=== PATIENT | female | born 1985 | race African-American/Black ===

== ENCOUNTER 2016-09-25 16:19 | Emergency (ER) | payer SELFPAY ==
[2016-09-25 16:41] VITALS: BP 125/84
[2016-09-25] MEDS ORDERED: LIDOCAINE 1% INJ-PF (10 MG/ML) 30 ML SDV INJ ONE (17:52)
[2016-09-25] MEDS ORDERED: DIPH/PERTUSS(ACELL)/TETANUS VAC/PF 0.5 ML SYR (>=10YO) IM ONE (17:59)
--- NOTE | 2016-09-25 18:07 | ER Document Report ---
HPI - HPI Pain Level: 5 Notes: Patient is a 31-year-old female presents the ED complaining of a laceration/ puncture wound to her left hand just prior to arrival. Patient states that she was trying to separate frozen pieces of burger meat with a knife when he slipped off and punctured her left palm. Patient states that it when he may be a 1/2 centimeter. Patient states that the pain is a throbbing pain right now. Patient states she still able to manager internet and she has feeling in her fingers. Patient states that she is able to stop the bleeding with compression. Patient is not sure when she had a tetanus previously. Denies any drug allergies, medications, significant past medical history. She denies any smoking or illicit drug use. Patient states the knife was otherwise clean. Denies any headache, fever, chest pain, palpitation constantly, cough, wheeze, shortness breath, abdominal pain, nausea/vomiting/diarrhea, muscle weakness/paralysis, numbness/tingling. - ROS Notes: REVIEW OF SYSTEMS: CONSTITUTIONAL : Denies fever, chills, or sweats. Denies recent illness. EENT: Denies eye, ear, throat, or mouth pain or symptoms. Denies nasal or sinus congestion or discharge. Denies throat, tongue, or mouth swelling or difficulty swallowing. CARDIOVASCULAR: Denies chest pain. Denies palpitations or racing or irregular heart beat. Denies ankle edema. RESPIRATORY: Denies cough, cold, or chest congestion. Denies shortness of breath, difficulty breathing, or wheezing. GASTROINTESTINAL: Denies abdominal pain or distention. Denies nausea, vomiting , or diarrhea. Denies blood in vomitus, stools, or per rectum. Denies black, tarry stools. Denies constipation. GENITOURINARY: Denies difficulty urinating, painful urination, burning, frequency, blood in urine, or discharge. MUSCULOSKELETAL: see hpi SKIN: see hpi NEUROLOGICAL: Denies confusion or altered mental status. Denies passing out or loss of consciousness. Denies dizziness or lightheadedness. Denies headache. Denies weakness or paralysis or loss of use of either side. Denies problems with gait or speech. Denies sensory loss, numbness, or tingling. ALL OTHER SYSTEMS REVIEWED AND NEGATIVE. Dictation was performed using [employer] voice recognition software Past Medical History - Social History Smoking Status: Never Smoker Chew tobacco use (# tins/day): No Frequency of alcohol use: None Drug Abuse: None Family History: Reviewed & Not Pertinent Patient has suicidal ideation: No Patient has homicidal ideation: No Renal/ Medical History: Denies: Hx Peritoneal Dialysis Past Surgical History: Reports: Hx Section - x4 - Immunizations Hx Diphtheria, Pertussis, Tetanus Vaccination: No Vertical Provider Document - CONSTITUTIONAL Agree With Documented VS: Yes Notes: PHYSICAL EXAMINATION: GENERAL: Well-appearing, well-nourished and in no acute distress. LUNGS: Breath sounds clear to auscultation bilaterally and equal. No wheezes rales or rhonchi. HEART: Regular rate and rhythm without murmurs, rubs, gallops. Musculoskeletal: lt hand: + 1.5cm linear laceration. FROM to passive/active of the fingers/hand/wrist. Strength 5+/5. Sensation intact distal. No deficits noted. No tendon/nervous/ligament compromise based on exam. + tenderness to palp near laceration. Extremities: No cyanosis, clubbing, or edema b/l. Peripheral pulses 2+. Capillary refill less than 2 seconds. NEUROLOGICAL:Normal sensory, motor exams PSYCH: Normal mood, normal affect. SKIN: Warm, Dry, normal turgor, no rashes or lesions noted. - INFECTION CONTROL TRAVEL OUTSIDE OF THE [place] IN LAST 30 DAYS: No - RESPIRATORY O2 Sat by Pulse Oximetry: 98 Course - Re-evaluation Re-evalutation: 09/25/16 19:14 Patient is an afebrile, well-hydrated, 31-year-old female presents the ED with a laceration to her left anterior hand status post puncture wound with a knife. Vitals are stable. PE otherwise unremarkable. Tdap was given today. There is no focal neurologicalm, vascular, musculoskeletalor deficit. Wound was thoroughly cleansed and irrigated. 5 simple interrupted sutures were utilized to approximate the wound edges successfully without any complications. Sterile wound dressing applied. Wound instructions reviewed. I will give her Keflex 3 times daily 5 days as prophylactic. Wound recheck in 2-3 days with PCM/ED. Call orthopedics to set up an appointment for further evaluation. Return to the ED with any worsening/concerning symptoms otherwise as reviewed in discharge. Patient is in agreement. - Vital Signs Vital signs: Temp Pulse Resp BP Pulse Ox 98.9 F 70 20 125/84 98 09/25/16 16:39 09/25/16 16:39 09/25/16 16:39 09/25/16 16:39 09/25/16 16:39 Procedures - Laceration/Wound Repair Left Anterior Hand Time completed: 18:45 Wound length (cm): 1.5 Wound's Depth, Shape: Superficial, Linear Laceration pre-procedure: Sterile PPE donned, Sterile drapes applied, Shur- Clens applied Anesthetic type: 1% Lidocaine Volume Anesthetic (mLs): 7 Wound explored: Clean Irrigated w/ Saline (mLs): 60 Wound Debrided: Minimal Wound Repaired With: Sutures Suture Size/Type: 5:0, Nylon Number of Sutures: 5 Layer Closure?: No Post-procedure wound care: Sterile dressing applied Post-procedure NV exam normal: Yes Complications: No Discharge - Discharge Clinical Impression: Hand laceration Qualifiers: Encounter type: initial encounter Foreign body presence: without foreign body Laterality: left Qualified Code(s): S61.412A - Laceration without foreign body of left hand, initial encounter Condition: Stable Disposition: HOME, SELF-CARE Instructions: Laceration Care ([facility]), Prophylactic Antibiotic ([facility]), Antibiotic Ointment Protection ([facility]), Soap Cleansing ([facility]), Tetanus Immunization Given ([facility] ) Additional Instructions: Do not shower or bathe for 24 hours. After 24 hours you may shower but no submersion of the wound under water. Keep the original dressing on the wound for 24 hours unless the drainage soaks through. Change the dressing daily thereafter and keep the knots of the suture material clean from any dried discharge. You may leave the wound open to the air once there is no more discharge. Return to the ED and/or your PCM in 2-3 days for a recheck. Monitor for any signs of worsening pain or redness, purulent drainage, streaks, and/or fever. Return to the ED if noticing any of the above symptoms or as needed. Take medications as directed. Your sutures will need to be removed in 12-14 days. Call Orthopedics (hand specialist) for recheck and further evaluation as well. Prescriptions: Cephalexin Monohydrate [Keflex 500 mg Capsule] 500 mg PO TID #15 capsule Referrals: AUSTEN KERNS DO [ACTIVE STAFF] - Follow up in 3-5 days
== END 2016-09-25 19:30 | disposition home or self-care (01) ==
LOC: ER 16:19
PROC: 0HQGXZZ Repair Left Hand Skin, External Approach (ICD-10-PCS; principal; 2016-09-25)
DX: S61.412A Laceration without foreign body of left hand, initial encounter (principal); W26.0XXA Contact with knife, initial encounter; Y93.G3 Activity, cooking and baking; Z23 Encounter for immunization
CPT/HCPCS: 99283; 90471; 90715; 12001; J3490

== ENCOUNTER 2017-01-23 00:20 | Emergency (ER) | payer SELFPAY ==
[2017-01-23 00:30] VITALS: BP 133/79
[2017-01-23] MEDS ORDERED: CLINDAMYCIN HCL 150 MG CAPSULE PO ONE (01:12)
--- NOTE | 2017-01-23 01:15 | ER Document Report ---
ED General - General Chief Complaint: Mouth Problem Stated Complaint: MOUTH PAIN,HEADACHE Time Seen by Provider: 01/23/17 00:48 Notes: Patient is a 31-year-old female without past history who presents with diffuse dental discomfort. Patient does describe it as a diffuse, throbbing, moderate pain that is worsened by chewing or swallowing. She states that this is been a problem for the past 2-3 weeks and she does have an appointment with the dentist in the next 24 hours. She does deny any difficulty breathing. No fever. She notes that she feels her space might be somewhat swollen but has not noted any significant facial swelling. She has also noted lymph node swelling. The patient had multiple complaints in triage only complaint she does address with me her dental discomfort. TRAVEL OUTSIDE OF THE [place] IN LAST 30 DAYS: No - Related Data Allergies/Adverse Reactions: No Known Allergies Allergy (Unverified 09/25/16 16:38) Past Medical History - General Information source: Patient - Social History Smoking Status: Never Smoker Frequency of alcohol use: None Drug Abuse: None Lives with: Spouse/Significant other Family History: Reviewed & Not Pertinent Patient has suicidal ideation: No Patient has homicidal ideation: No Renal/ Medical History: Denies: Hx Peritoneal Dialysis Past Surgical History: Reports: Hx Section - x4 - Immunizations Hx Diphtheria, Pertussis, Tetanus Vaccination: No Review of Systems - Review of Systems Notes: Constitutional: Negative for fever. HENT: Positive for diffuse dental pain. Eyes: Negative for visual changes. Cardiovascular: Negative for chest pain. Respiratory: Negative for shortness of breath. Gastrointestinal: Negative for abdominal pain, vomiting or diarrhea. Genitourinary: Negative for dysuria. Musculoskeletal: Negative for back pain. Skin: Negative for rash. Neurological: Negative for headaches, weakness or numbness. 10 point ROS negative except as marked above and in HPI. Physical Exam - Vital signs Vitals: Temp Pulse Resp BP Pulse Ox 98.2 F 84 18 133/79 H 98 01/23/17 00:20 01/23/17 00:20 01/23/17 00:20 01/23/17 00:20 01/23/17 00:20 Interpretation: Normal Notes: PHYSICAL EXAMINATION: GENERAL: Well-appearing, well-nourished and in no acute distress. HEAD: Atraumatic, normocephalic. EYES: Pupils equal round and reactive to light, extraocular movements intact, sclera anicteric, conjunctiva are normal. ENT: Multiple dental caries and several areas of chipped teeth. There are multiple small periapical abscesses scattered throughout the gingiva. Nares patent, oropharynx clear without exudates. Moist mucous membranes. NECK: Normal range of motion, bilateral submandibular lymphadenopathy. LUNGS: Breath sounds clear to auscultation bilaterally and equal. No wheezes rales or rhonchi. HEART: Regular rate and rhythm without murmurs ABDOMEN: Soft, nontender, normoactive bowel sounds. No guarding, no rebound. No masses appreciated. EXTREMITIES: Normal range of motion, no pitting or edema. No cyanosis. NEUROLOGICAL: No focal neurological deficits. Moves all extremities spontaneously and on command. PSYCH: Normal mood, normal affect. SKIN: Warm, Dry, normal turgor, no rashes or lesions noted. Course - Re-evaluation Re-evalutation: 01/23/17 01:13 Patient has diffuse dental caries and several small apical abscesses that expressed easily with direct palpation. She has a scheduled appointment with a dentist within the next 24 hours. Will start on clindamycin 3 times daily. Her airway is otherwise patent, no evidence of a peritonsillar abscess, Sivakumar' s angina, or significant facial swelling. Vitals otherwise within normal limits. At this time will discharge with return precautions and follow-up recommendations. Verbal discharge instructions given a the bedside and opportunity for questions given. Medication warnings reviewed. Patient is in agreement with this plan and has verbalized understanding of return precautions and the need for him to follow-up as scheduled - Vital Signs Vital signs: Temp Pulse Resp BP Pulse Ox 98.2 F 84 18 133/79 H 98 01/23/17 00:20 01/23/17 00:20 01/23/17 00:20 01/23/17 00:20 01/23/17 00:20 Discharge - Discharge Clinical Impression: Pain, dental, Dental abscess Condition: Good Disposition: HOME, SELF-CARE Additional Instructions: You have been seen for dental pain. It is very important that you follow-up with a dentist for definitive care. Please return if you develop fever greater than 101, swelling in your face, vomiting, difficulty breathing or swallowing, or any other symptoms that are concerning to you. For pain you should take ibuprofen 600 mg every 6 hours as needed. Prescriptions: Clindamycin HCl 300 mg PO TID #30 capsule Referrals: DON STALEY MD [Primary Care Provider] - Follow up as needed
== END 2017-01-23 01:25 | disposition home or self-care (01) ==
LOC: ER 00:20
DX: K04.7 Periapical abscess without sinus (principal); K08.89 Other specified disorders of teeth and supporting structures; K02.9 Dental caries, unspecified; R51 Headache; R59.1 Generalized enlarged lymph nodes
CPT/HCPCS: 99282

== ENCOUNTER 2018-03-05 16:31 | Emergency (ER) | payer MEDICAID ==
[2018-03-05] MEDS ORDERED: KETOROLAC TROMETHAMINE 60 MG/2 ML SDV IM ONE (17:26)
--- NOTE | 2018-03-05 17:30 | ER Document Report ---
ED Headache - General Chief Complaint: Headache Stated Complaint: HEADACHE Time Seen by Provider: 03/05/18 17:18 Mode of Arrival: Ambulatory Information source: Patient Notes: History of Present Illness Chief Complaint: [headache] [ 32 years old female presents today with headache since this afternoon. The headache is centered mostly in the occipital region. Not associated with any n ausea vomiting focal weakness numbness tingling sensation. Denies any blurring of vision or aura. Denies any fever chills or other constitutional symptoms] History obtained from [patient] Symptoms began: [today] Onset: [gradual] Timing: [constant] Quality: ["pain"] No different than prior severe headaches Intensity: [severe, but not worst ever] Location: [frontal] Aggravating factors: [none] Relieving factors: [none] Denies neck pain or stiffness Denies rash Denies visual loss or eye pain. Denies tick bite Denies head injury Denies weakness, numbness, incontinence, seizure, LOC Review of systems : All other systems negative as reviewed. CONSTITUTIONAL No fever. EYES No eye pain. ENT No URI symptoms, No sore throat, No ear pain. CARDIOVASCULAR No chest pain, No palpitations, No edema. RESPIRATORY No Cough, No SOB, No wheezing. GASTROINTESTINAL No abdominal pain, No nausea, No vomiting, No diarrhea, No constipation, No melena, No rectal bleeding. GENITOURINARY No UTI symptoms. MUSCULOSKELETAL No back pain. SKIN No Rash. NEUROLOGIC No paralysis, No parathesias. ENDOCRINE No polyuria. HEMO/LYMPATIC Patient does not bruise easily. PSYCHIATRIC No depression. Physical Exam CONSTITUTIONAL Vital signs reviewed, Comfortable, Alert and oriented X 3. HEAD Atraumatic, Normal cephalic. EYES No discharge from eye, Sclera are not injected, Extraocular muscles intact, Conjunctiva are normal.perrl,2mm, no photophobia, no nystagmus, fundi wnl. ENT Ears normal to inspection, Nose examination normal, Oropharynx normal, Mucous membranes pink, moist, normal in color. NECK Normal inspection, supple, Normal ROM, No jugular venous distention, No meningeal signs, no carotid bruit or tenderness. RESPIRATORY/CHEST Chest is non-tender, Breath sounds normal, No respiratory distress. CARDIOVASCULAR RRR, Heart sounds normal. ABDOMEN Abdomen is non-tender, No masses, Bowel sounds normal, No distension, No peritoneal signs. BACK Normal inspection. UPPER EXTREMITY Inspection normal, No cyanosis/clubbing/edema. LOWER EXTREMITY Inspection normal, No cyanosis/clubbing/edema, No calf tenderness. NEURO cn intact, no astreixis, no pronator drift, finger to nose testing coordinated bilaterally, 1+ deep tendon reflexes x 4 ext, down going babinski bilaterally, normal speech, Motor exam normal, Sensory exam normal. SKIN Skin is warm and dry, No rash. LYMPHATIC No adenopathy in neck. PSYCHIATRIC Normal affect. TRAVEL OUTSIDE OF THE [place] IN LAST 30 DAYS: No - HPI Notes: Dictated - Related Data Allergies/Adverse Reactions: No Known Allergies Allergy (Verified 03/05/18 16:33) Past Medical History - Social History Smoking Status: Never Smoker Frequency of alcohol use: Rare Drug Abuse: None Lives with: Family Family History: Reviewed & Not Pertinent - Past Medical History Cardiac Medical History: Reports: Hx Hypertension Renal/ Medical History: Denies: Hx Peritoneal Dialysis Past Surgical History: Reports: Hx Section - x4 - Immunizations Hx Diphtheria, Pertussis, Tetanus Vaccination: No Review of Systems - Review of Systems Notes: Dictated Physical Exam - Vital signs Vitals: Temp Pulse Resp BP Pulse Ox 98.4 F 75 20 133/82 H 98 03/05/18 16:44 03/05/18 16:44 03/05/18 16:44 03/05/18 16:44 03/05/18 16:44 - Notes Notes: Dictated Course - Re-evaluation Re-evalutation: 03/05/18 17:28 Given Toradol IM - Vital Signs Vital signs: Temp Pulse Resp BP Pulse Ox 98.4 F 75 20 133/82 H 98 03/05/18 16:44 03/05/18 16:44 03/05/18 16:44 03/05/18 16:44 03/05/18 16:44 Discharge - Discharge Clinical Impression: Headache Qualifiers: Headache type: unspecified Headache chronicity pattern: acute headache Intractability: not intractable Qualified Code(s): R51 - Headache Condition: Fair Disposition: HOME, SELF-CARE Instructions: Headache ([facility]) Prescriptions: Baclofen [Baclofen 10 mg Tablet] 10 mg PO TID #30 tab Naproxen 500 mg PO BID #30 tablet Referrals: DON STALEY MD [Primary Care Provider] - Follow up as needed
[2018-03-05 19:07] VITALS: BP 135/93
== END 2018-03-05 19:07 | disposition home or self-care (01) ==
LOC: ER 16:31
DX: R51 Headache (principal); I10 Essential (primary) hypertension
CPT/HCPCS: 99283; 96372; J1885

== ENCOUNTER 2018-03-18 19:55 | Emergency (ER) | payer MEDICAID ==
[2018-03-18 23:13] LABS: EPITHELIALS (WET MOUNT) 3+ EPITHELIALS SEEN; T.VAGINALIS (WET MOUNT) NO TRICHOMONAS SEEN; WBCS (WET MOUNT) NO WBCS SEEN; YEAST (WET MOUNT) NO YEAST SEEN
[2018-03-18 23:18] LABS: APPEARANCE,URINE SLIGHTLY-CLOUDY; BILIRUBIN,URINE NEGATIVE (NEGATIVE); COLOR,URINE YELLOW; GLUCOSE, URINE NEGATIVE (NEGATIVE); KETONES,URINE NEGATIVE (NEGATIVE); LEUKOCYTE ESTERASE,URINE LARGE (NEGATIVE); NITRITE,URINE NEGATIVE (NEGATIVE); PROTEIN,URINE NEGATIVE (NEGATIVE); URINE SPECIFIC GRAVITY 1.018
[2018-03-18 23:29] VITALS: BP 146/93
[2018-03-18] MEDS ORDERED: FLUCONAZOLE 100 MG TABLET PO ONE (23:55)
--- NOTE | 2018-03-18 23:57 | ER Document Report ---
ED General - General Chief Complaint: Vaginal Discharge Stated Complaint: VAGINAL ISSUE Time Seen by Provider: 03/18/18 22:19 Primary Care Provider: MARY HARRIS MD [Primary Care Provider] - Follow up as needed Information source: Patient, [facility] Records Notes: 33-year-old female presents with complaint of vaginal itching, irritation for 1 week. Patient denies abdominal pain, vaginal discharge, dysuria, or STD. TRAVEL OUTSIDE OF THE [place] IN LAST 30 DAYS: No - HPI Onset: Last week Onset/Duration: Gradual, Persistent Quality of pain: Burning, Other Severity: Mild Associated symptoms: None. denies: Chest pain, Diarrhea, Fever, Nausea, Vomiting, Shortness of breath Exacerbated by: Denies Relieved by: Denies Similar symptoms previously: Yes Recently seen / treated by doctor: No - Related Data Allergies/Adverse Reactions: No Known Allergies Allergy (Verified 03/05/18 16:33) Past Medical History - General Information source: Patient, [facility] Records - Social History Smoking Status: Never Smoker Frequency of alcohol use: None Drug Abuse: None Lives with: Family Family History: Reviewed & Not Pertinent Patient has suicidal ideation: No Patient has homicidal ideation: No - Past Medical History Cardiac Medical History: Reports: Hx Hypertension Renal/ Medical History: Denies: Hx Peritoneal Dialysis Past Surgical History: Reports: Hx Section - x4 - Immunizations Hx Diphtheria, Pertussis, Tetanus Vaccination: No Review of Systems - Review of Systems Notes: REVIEW OF SYSTEMS: CONSTITUTIONAL : Denies fever, chills, or sweats. Denies recent illness. Denies weight loss, recent hospitalizations. EENT: Denies visual changes, eye pain. Denies sore throat, oral lesions, difficulty swallowing. CARDIOVASCULAR: Denies chest pain. Denies palpitations. Denies lower extremity edema. RESPIRATORY: Denies cough. Denies shortness of breath, wheezing. GASTROINTESTINAL: Denies abdominal pain or distention. Denies nausea, vomiting, or diarrhea. Denies blood in vomitus, stools, or per rectum. Denies black, tarry stools. Denies constipation. GENITOURINARY: Denies difficulty urinating, painful urination, frequency, blood in urine, or vaginal discharge. MUSCULOSKELETAL: Denies back or neck pain or stiffness. Denies joint pain or swelling. SKIN: Denies rash, lesions or sores. HEMATOLOGIC : Denies easy bruising or bleeding. LYMPHATIC: Denies swollen glands. NEUROLOGICAL: Denies confusion or altered mental status. Denies loss of consciousness. Denies dizziness or lightheadedness. Denies headache. Denies weakness or paralysis. Denies problems difficulty with ambulation, slurred speech. Denies sensory loss, numbness, or tingling. Denies seizures. PSYCHIATRIC: Denies anxiety or stress. Denies depression, suicidal ideation, or homicidal ideation. Denies visual or auditory hallucinations. Physical Exam - Vital signs Vitals: Temp Pulse Resp BP Pulse Ox 98.4 F 83 20 131/85 H 99 03/18/18 20:27 03/18/18 20:27 03/18/18 20:27 03/18/18 20:27 03/18/18 20:27 - Notes Notes: PHYSICAL EXAMINATION: GENERAL: Well-appearing, well-nourished and in no acute distress. HEAD: Atraumatic, normocephalic. EYES: Pupils equal round and reactive to light, extraocular movements intact, conjunctiva are normal. ENT: Nares patent, oropharynx clear without exudates. Moist mucous membranes. NECK: Normal range of motion, supple without lymphadenopathy LUNGS: Breath sounds clear to auscultation bilaterally and equal. No wheezes rales or rhonchi. HEART: Regular rate and rhythm without murmurs ABDOMEN: Soft, nontender, nondistended abdomen. No guarding, no rebound. No masses appreciated. Female : Pelvic exam; External genitalia unremarkable. Speculum exam with thick white discharge. Vaginal wall unremarkable. Os closed. No cervical motion tenderness. No adnexal tenderness or masses appreciated. Swabs obtained for gonorrhea, chlamydia and wet prep. Musculoskeletal: Normal range of motion, no pitting or edema. No cyanosis. NEUROLOGICAL: Cranial nerves grossly intact. Normal speech, normal gait. Normal sensory, motor exams PSYCH: Normal mood, normal affect. SKIN: Warm, Dry, normal turgor, no rashes or lesions noted. Course - Re-evaluation Re-evalutation: 03/19/18 19:51 Laboratory 03/18/18 03/18/18 03/18/18 22:15 22:55 23:00 Urine Color YELLOW Urine Appearance SLIGHTLY-CLOUDY Urine pH 5.0 Ur Specific Rumsey 1.018 Urine Protein NEGATIVE Urine Glucose (UA) NEGATIVE Urine Ketones NEGATIVE Urine Blood NEGATIVE Urine Nitrite NEGATIVE Urine Bilirubin NEGATIVE Urine Urobilinogen 2.0 H Ur Leukocyte Esterase LARGE H Urine WBC (Auto) 2 Urine RBC (Auto) 1 Squamous Epi Cells Auto 6 Urine Mucus (Auto) OCC Urine Ascorbic Acid NEGATIVE Urine HCG, Qual NEGATIVE Epi Cells (Wet Prep) Trichomonas (Wet Prep) Vaginal WBC Vaginal Yeast Chlamydia DNA (PCR) NOT DETECTED N.gonorrhoeae DNA (PCR) NOT DETECTED 03/18/18 23:00 Urine Color Urine Appearance Urine pH Ur Specific Rumsey Urine Protein Urine Glucose (UA) Urine Ketones Urine Blood Urine Nitrite Urine Bilirubin Urine Urobilinogen Ur Leukocyte Esterase Urine WBC (Auto) Urine RBC (Auto) Squamous Epi Cells Auto Urine Mucus (Auto) Urine Ascorbic Acid Urine HCG, Qual Epi Cells (Wet Prep) 3+ EPITHELIALS SEEN Trichomonas (Wet Prep) NO TRICHOMONAS SEEN Vaginal WBC NO WBCS SEEN Vaginal Yeast NO YEAST SEEN Chlamydia DNA (PCR) N.gonorrhoeae DNA (PCR) Temp Pulse Resp BP Pulse Ox 98.2 F 82 16 146/93 H 99 03/18/18 23:23 03/18/18 23:23 03/18/18 23:23 03/18/18 23:23 03/18/18 23:23 31-year-old female presents with vaginal itching. Vital signs stable upon ar rival. Patient has a benign abdominal exam and pelvic exam significant for thick white discharge. Wet mount negative for bacterial vaginosis, trichomonas. Gonorrhea and chlamydia negative. Exam consistent with vaginitis. Patient was evaluated and treated as appropriate for the patient's presenting symptoms and complaint, with consideration of any critical or life threatening conditions that may be associated with their obtained history and exam as noted above. All results were discussed with patient . Patient provided the opportunity to ask questions, and express concerns. Patient was educated on treatments based on their presumed diagnosis as noted above. At this time we will discharge the patient with return precautions and follow-up recommendations. Verbal discharge instructions given a the bedside. Medication warnings reviewed. Patient is in agreement with this plan and has verbalized understanding of return precautions. After careful consideration I feel that that patient can be safely discharged from the emergency department, they were advised to followup with a primary care physician in 2-3 days. Dictation on this chart was performed using voice recognition software and may result in unintended grammatical, spelling, syntax or errors. 03/19/18 19:52 - Vital Signs Vital signs: Temp Pulse Resp BP Pulse Ox 98.2 F 82 16 146/93 H 99 03/18/18 23:23 03/18/18 23:23 03/18/18 23:23 03/18/18 23:23 03/18/18 23:23 - Laboratory Laboratory results interpreted by me: 03/18/18 22:55 Urine Urobilinogen 2.0 H Ur Leukocyte Esterase LARGE H Discharge - Discharge Clinical Impression: Vaginal itching Condition: Good Disposition: HOME, SELF-CARE Instructions: Vaginitis ([facility]) Prescriptions: Miconazole Nitrate [Monistat 7] 45 gm VG BID 5 Days #1 cream.[email or web address] Referrals: MARY HARRIS MD [Primary Care Provider] - Follow up as needed
[2018-03-19 00:42] LABS: CHLAM PCR NOT DETECTED (NOT DETECT); GON PCR NOT DETECTED (NOT DETECT)
== END 2018-03-19 00:26 | disposition home or self-care (01) ==
LOC: ER 19:55
DX: L29.2 Pruritus vulvae (principal); N89.8 Other specified noninflammatory disorders of vagina; I10 Essential (primary) hypertension
CPT/HCPCS: 99283; 87210; 81025; 81001; 87491; 87591; J3490

== ENCOUNTER 2018-06-05 21:37 | Emergency (ER) | payer MEDICAID ==
--- NOTE | 2018-06-05 22:18 | RADIOLOGY REPORT (SQ) ---
EXAM DESCRIPTION: XR LEFT ANKLE 3 OR MORE VIEWS COMPLETED DATE/TME: 06/05/2018 00:00 CLINICAL HISTORY: 33 years, Female, injury COMPARISON: None. NUMBER OF VIEWS: TECHNIQUE: LIMITATIONS: None. FINDINGS: No fracture or dislocation. There is medial soft tissue swelling. Mineralization of bone appears normal. IMPRESSION: Medial soft tissue swelling. copyright 2010 [employer]- All Rights Reserved
--- NOTE | 2018-06-05 22:46 | ER Document Report ---
ED Medical Screen (RME) - General Chief Complaint: Ankle Injury Stated Complaint: FOOT PAIN Time Seen by Provider: 06/05/18 22:35 Primary Care Provider: MARY HARRIS MD [Primary Care Provider] - Follow up as needed Notes: 33-year-old female, chief complaint of left foot and ankle pain. States that she had an inversion injury of the ankle almost 1 year ago, has had intermittent problems since, typically walks awkwardly and limps on the foot, currently has swelling and pain. States she never had x-rays or evaluation for it. TRAVEL OUTSIDE OF THE [place] IN LAST 30 DAYS: No - Related Data Allergies/Adverse Reactions: No Known Allergies Allergy (Verified 03/05/18 16:33) Past Medical History - Past Medical History Cardiac Medical History: Reports: Hx Hypertension Renal/ Medical History: Denies: Hx Peritoneal Dialysis Past Surgical History: Reports: Hx Section - x4 - Immunizations Hx Diphtheria, Pertussis, Tetanus Vaccination: No Physical Exam - Vital signs Vitals: Temp Pulse Resp BP Pulse Ox 99.3 F 88 20 142/79 H 96 06/05/18 22:19 06/05/18 22:19 06/05/18 22:19 06/05/18 22:19 06/05/18 22:19 - Extremities General lower extremity: Other - Pain with palpation over the left foot and ankle generally, soft tissue swelling noted around the ankle which is mild, no bruising, no abnormal erythema, normal capillary refill and sensation. Course - Re-evaluation Re-evalutation: Painful over the foot and ankle, already had ankle x-rays here, requesting for x-rays. This was ordered. I have greeted and performed a rapid initial assessment of this patient. A comprehensive ED assessment and evaluation of the patient, analysis of test results and completion of the medical decision making process will be conducted by additional ED providers. - Vital Signs Vital signs: Temp Pulse Resp BP Pulse Ox 99.3 F 88 20 142/79 H 96 06/05/18 22:19 06/05/18 22:19 06/05/18 22:19 06/05/18 22:19 06/05/18 22:19 Doctor's Discharge - Discharge Referrals: MARY HARRIS MD [Primary Care Provider] - Follow up as needed
--- NOTE | 2018-06-05 23:30 | RADIOLOGY REPORT (SQ) ---
EXAM DESCRIPTION: XR FOOT 3 OR MORE VIEWS COMPLETED DATE/TME: 06/05/2018 22:44 CLINICAL HISTORY: 33 years Female, also foot pain, limping COMPARISON: None. Findings: Moderate diffuse swelling of the left hindfoot, plantar aspect, measures 2.7-cm in thickness. Bones, joints, and soft tissues of the LEFT XR FOOT 3 OR MORE VIEWS appear otherwise unremarkable. IMPRESSION: Swelling includes thickened heel pad of the left foot. Differential etiologies include cellulitis, generalized edema, trauma, acromegaly, complications of Dilantin, and chronic plantar fasciitis.
[2018-06-06 01:21] VITALS: BP 139/82
--- NOTE | 2018-06-06 05:21 | ER Document Report ---
Entered by AMMON AREVALO SCRIBE 06/06/18 0047 Acting as scribe for:PASQUALE TRENT DO ED Extremity Problem, Lower - General Chief Complaint: Ankle Injury Stated Complaint: FOOT PAIN Time Seen by Provider: 06/05/18 22:35 Primary Care Provider: MARY HARRIS MD [Primary Care Provider] - Follow up as needed PAUL PHILIP MD [ACTIVE STAFF] - Follow up as needed Mode of Arrival: Ambulatory Notes: 33-year-old female who presents to the emergency department today with complaints of left ankle pain. Patient states that she twisted her ankle over a year ago and has had constant pain with this ankle since that injury. Patient denies any new injury. Patient is able to ambulate with some pain. TRAVEL OUTSIDE OF THE [place] IN LAST 30 DAYS: No - Related Data Allergies/Adverse Reactions: No Known Allergies Allergy (Verified 03/05/18 16:33) Past Medical History - General Information source: Patient - Social History Smoking Status: Unknown if Ever Smoked Cigarette use (# per day): No Frequency of alcohol use: None Drug Abuse: None Lives with: Family Family History: Reviewed & Not Pertinent Patient has suicidal ideation: No Patient has homicidal ideation: No - Past Medical History Cardiac Medical History: Reports: Hx Hypertension Past Surgical History: Reports: Hx Section - x4 - Immunizations Hx Diphtheria, Pertussis, Tetanus Vaccination: No Review of Systems - Review of Systems Constitutional: No symptoms reported EENT: No symptoms reported Cardiovascular: No symptoms reported Respiratory: No symptoms reported Gastrointestinal: No symptoms reported Genitourinary: No symptoms reported Female Genitourinary: No symptoms reported Musculoskeletal: See HPI, Other - left ankle pain Skin: No symptoms reported Hematologic/Lymphatic: No symptoms reported Neurological/Psychological: No symptoms reported -: Yes All other systems reviewed and negative Physical Exam - Vital signs Vitals: Temp Pulse Resp BP Pulse Ox 99.3 F 88 20 142/79 H 96 06/05/18 22:19 06/05/18 22:19 06/05/18 22:19 06/05/18 22:19 06/05/18 22:19 - Notes Notes: PHYSICAL EXAM GENERAL: Alert, interacts well. No acute distress. HEAD: Normocephalic, atraumatic. EYES: Pupils equal, round, and reactive to light. Extraocular movements intact. ENT: Oral mucosa moist, tongue midline. NECK: Full range of motion. Supple. Trachea midline. LUNGS: No respiratory distress. EXTREMITIES: Moves all 4 extremities spontaneously. Swelling over the left medial foot, over the instep. No fluctuance or erythema. Tenderness with palpation of distal medial malleolus. NEUROLOGICAL: Alert and oriented x3. Normal speech. PSYCH: Normal affect, normal mood. SKIN: Warm, dry, normal turgor. No rashes or lesions noted. Course - Re-evaluation Re-evalutation: 06/06/18 01:00 ankle and foot x-rays negative for acute fracture. No tenderness palpation over the heel, low suspicion for cellulitis or plantar fasciitis as she has no pain in those areas despite the reading on the x-ray. Encourage patient to use an Ti wrap for comfort and support and follow-up with orthopedic surgery as an outpatient for this left ankle pain and subjective instability this been going on for the past year. Patient agreeable to this plan. Discharged home. - Vital Signs Vital signs: Temp Pulse Resp BP Pulse Ox 98.2 F 85 17 139/82 H 98 06/06/18 01:20 06/06/18 01:20 06/06/18 01:20 06/06/18 01:20 06/06/18 01:20 Discharge - Discharge Clinical Impression: Chronic pain of left ankle Condition: Stable Disposition: HOME, SELF-CARE Additional Instructions: Use Ti wrap to decrease the pain in your left ankle. Wear supportive shoes. Take ibuprofen and acetaminophen as directed on the bottle [id number] as needed for pain. Follow-up with orthopedic surgery as an outpatient. Referrals: MARY HARRIS MD [Primary Care Provider] - Follow up as needed PAUL PHILIP MD [ACTIVE STAFF] - Follow up as needed I personally performed the services described in the documentation, reviewed and edited the documentation which was dictated to the scribe in my presence, and it accurately records my words and actions.
== END 2018-06-06 01:20 | disposition home or self-care (01) ==
LOC: ER 21:37
DX: G89.29 Other chronic pain (principal); M25.572 Pain in left ankle and joints of left foot; I10 Essential (primary) hypertension
CPT/HCPCS: 99283